=== PATIENT | female | born 1960 | race Two or more races ===

== ENCOUNTER 2020-07-31 04:47 | Inpatient (IN) | payer BC ==
[2020-07-31] MEDS ORDERED: NITROGLYCERIN-D5W PMX 50 MG in DEXTROSE/WATER 1 250ML.BAG IV STA (05:01)
--- NOTE | 2020-07-31 05:01 | ED ---
Chest Pain HPI - General Chief Complaint: Chest Pain Stated Complaint: Chest pain Time Seen by Provider: 07/31/20 05:01 Source: patient, EMS Mode of arrival: EMS Limitations: no limitations - History of Present Illness Initial Comments: Gertrudis is a 59-year-old female with a history of known coronary artery disease status post stenting 1, patient is a transfer to our hospital from outside hospital where she was seen and evaluated for chest pain. Patient reports that she was in her usual state of health throughout the day yesterday she woke from sleep with left-sided chest pain no palpitations, diaphoresis or shortness of breath. Pain was worse than any cardiac pain she's experienced in the past. She sought care at outside hospital where her pain was relieved by nitro and she was placed on nitro drip. She requested transfer to our facility for evaluation by her deliverer outside Dr. Glover. On arrival to our emergency department patient reports that her pain is improving she's much more comfortable now. - Related Data Allergies Allergy/AdvReac Type Severity Reaction Status Date / Time No Known Allergies Allergy Verified 07/31/20 05:01 Review of Systems ROS Statement: Those systems with pertinent positive or pertinent negative responses have been documented in the HPI. ROS Other: All systems not noted in ROS Statement are negative. EKG Findings - EKG Comments: EKG Findings:: EKG was obtained due to complaint of chest pain, EKG was obtained at 5:13 AM, rate is 62 rhythm is sinus there is a normal axis, normal intervals, MT 180, QRS 74, QTC is 448 there are no acute ST elevations or depressions no evidence of acute ischemia or infarction Past Medical History Past Medical History: Coronary Artery Disease (CAD), Hypertension History of Any Multi-Drug Resistant Organisms: None Reported Past Surgical History: No Surgical Hx Reported Past Psychological History: No Psychological Hx Reported Smoking Status: Current every day smoker Past Alcohol Use History: None Reported Past Drug Use History: None Reported General Exam - General Exam Comments Initial Comments: Physical Exam GENERAL: Patient is well-developed and well-nourished. Patient is nontoxic and well-hydrated and is in no distress. HENT: Normocephalic, Atraumatic. EYES: PERRL, EOMI PULMONARY: Unlabored respirations. CARDIOVASCULAR: RRR Warm and well perfused extremities ABDOMEN: Non-distended SKIN: No rashes or bruising : Deferred NEUROLOGIC: Alert and oriented Normal speech Normal gait MUSCULOSKELETAL: Moving all extremities with no apparent injury PSYCHIATRIC: No SI/HI Limitations: no limitations Course Vital Signs 07/31/20 07/31/20 04:51 05:53 Temperature 97.7 F 97.7 F Pulse Rate 60 60 Respiratory 18 18 Rate Blood Pressure 137/71 122/56 O2 Sat by Pulse 94 L 94 L Oximetry Chest Pain MDM - MDM Patient care was scheduled transferring physician, patient with intractable chest pain on a nitro drip transferred here for evaluation by cardiology Upon arrival here patient's chest pain has improved, nitro drip was discontinued Nitropaste will be ordered excited and repeat labs were obtained CBC and CMP were unremarkable troponin was pending at the time of admission Patient to be admitted to the [facility] hospitalist group with a consult to cardiology for further evaluation Patient was chest pain-free upon admission Disposition Clinical Impression: Chest pain Disposition: ADMITTED IP TO THIS HOSP Condition: Stable Is patient prescribed a controlled substance at d/c from ED?: No
[2020-07-31] MEDS ORDERED: NITROGLYCERIN SL TABS 0.4 MG TAB SUBLINGUAL PRN ×3 (05:16→12:12)
[2020-07-31] MEDS: SODIUM CHLORIDE 0.9% 1,000 ML IV STA ×2 (05:32→13:06)
[2020-07-31] MEDS: NITROGLYCERIN OINT 1 INCH/GM PACKET TOPICAL SCH ×2 (05:33→12:33)
[2020-07-31 05:37] LABS: ALT 22 U/L (4-34); AST 22 U/L (14-36); African American GFR (CKD) >90 (>60 ml/min/1.73 sqM); Albumin 3.6 g/dL (3.5-5.0); Alkaline Phosphatase 110 U/L (38-126); Anion Gap 5 mmol/L; Blood Urea Nitrogen 11 mg/dL (7-17); Calcium 9.2 mg/dL (8.4-10.2); Carbon Dioxide 25 mmol/L (22-30); Chloride 109 mmol/L (98-107); Glucose 117 mg/dL (74-99); Non-African American GFR(CKD) 86 (>60 ml/min/1.73 sqM); Potassium 4.1 mmol/L (3.5-5.1); Sodium 139 mmol/L (137-145); Total Bilirubin 0.4 mg/dL (0.2-1.3); Total Protein 6.2 g/dL (6.3-8.2)
[2020-07-31 05:38] LABS: Basophils % (A) 0 %; Eosinophils # (A) 0.1 k/uL (0-0.7); Eosinophils % (A) 2 %; Lymphocytes # (A) 1.7 k/uL (1.0-4.8); Lymphocytes % (A) 22 %; MCH 28.3 pg (25.0-35.0); MCHC 31.8 g/dL (31.0-37.0); MCV 89.1 fL (80.0-100.0); Monocytes # (A) 0.3 k/uL (0-1.0); Monocytes % (A) 4 %; Neutrophils # (A) 5.5 k/uL (1.3-7.7); Neutrophils % (A) 71 %; Platelet Count 229 k/uL (150-450); RDW 13.2 % (11.5-15.5); WBC 7.7 k/uL (3.8-10.6)
[2020-07-31 05:45] LABS: INR 0.9 (<1.2); Partial Thromboplastin Time 22.2 sec (22.0-30.0); Prothrombin Time 9.5 sec (9.0-12.0)
[2020-07-31] MEDS ORDERED: HEPARIN SODIUM,PORCINE 5,000 UNIT/ML 1 ML VIAL IV PRN (06:14)
[2020-07-31] MEDS ORDERED: HEPARIN SODIUM,PORCINE 5,000 UNIT/ML 1 ML VIAL IV ONE (06:14)
[2020-07-31] MEDS ORDERED: HEPARIN SOD,PORK IN 0.45% NACL 25,000 UNIT in 0.45% NACL 1 250ML.BAG IV SCH (06:15)
[2020-07-31] MEDS ORDERED: ASPIRIN 325 MG TAB PO STA (08:52)
[2020-07-31] MEDS ORDERED: ATORVASTATIN 80 MG TAB PO STA (08:52)
[2020-07-31] MEDS ORDERED: ALPRAZolam 0.5 MG TAB PO PRN (08:52)
[2020-07-31] MEDS ORDERED: SODIUM CHLORIDE 0.9% 1,000 ML in EMPTY BAG 1 BAG IV ONE (08:52)
[2020-07-31] MEDS ORDERED: ALPRAZolam 0.25 MG TAB PO PRN (08:52)
[2020-07-31] MEDS ORDERED: ATORVASTATIN 80 MG TAB PO SCH ×2 (09:00→21:00)
--- NOTE | 2020-07-31 09:25 | P.CRDCN ---
History of Present Illness Consult date: 07/31/20 Consult reason: non-Q-wave [place] Chief complaint: Chest pain History of present illness: This is a 59-year-old female with documented history of hypertension, hyperlipidemia, nicotine dependence, coronary artery disease with prior LAD stenting 2 years ago in [place]. Patient has stopped taking all of her medicat ions at home, she continues to take an occasional aspirin. Patient presented to [facility] with symptoms of chest discomfort. According to the patient her symptoms started around midnight, woke her from sleep. She described the symptoms as tightness and pressure in the chest with radiation to both of her arms, she states her right arm was quite painful in both arms were numb. She did have associated diaphoresis and episode of nausea and vomiting. Her EKG performed on arrival tomorrow at showed a normal sinus rhythm with no acute changes. Blood work performed at [facility], d-dimer 0.47, hemoglobin 13.6, magnesium 2.0, troponin 0.05. Patient was transferred to [facility] for further evaluation and treatment. Her blood pressure on arrival here 118/56, heart rate in the 50s, respirations 18, 95% on room air. EKG showed normal sinus rhythm with no acute changes. White blood cell count 7.7, hemoglobin 13, platelet count 229. Sodium 139, potassium 4.1, BUN 11, creatinine 0.7. Magnesium 2.0 and troponin 0.1. Patient is currently on a baby aspirin, heparin drip, nitroglycerin drip, and Nitropaste. We will start the patient on Lipitor 80, obtain a repeat EKG as well as an echocardiogram with Doppler study. Patient has also been advised to undergo cardiac catheterization, the risks and the benefits were explained to the patient in detail and she is willing to pr oceed. This will be performed today by Dr. Glover. Past Medical History Past Medical History: Coronary Artery Disease (CAD), Hypertension History of Any Multi-Drug Resistant Organisms: None Reported Past Surgical History: No Surgical Hx Reported Past Psychological History: No Psychological Hx Reported Smoking Status: Current every day smoker Past Alcohol Use History: None Reported Past Drug Use History: None Reported Medications and Allergies Home Medications Medication Instructions Recorded Confirmed Type No Known Home Medications 07/31/20 07/31/20 History Allergies Allergy/AdvReac Type Severity Reaction Status Date / Time No Known Allergies Allergy Verified 07/31/20 06:39 Physical Exam Vitals: Vital Signs Temp Pulse Pulse Resp BP BP Pulse Ox 07/31/20 08:00 57 L 16 125/58 97 07/31/20 06:56 98.4 F 56 L 18 118/56 95 07/31/20 06:01 55 L 16 125/65 96 07/31/20 05:53 97.7 F 60 18 122/56 94 L 07/31/20 04:51 97.7 F 60 18 137/71 94 L Intake and Output 07/30/20 07/31/20 07/31/20 22:59 06:59 14:59 Other: # Voids 1 Weight 104.326 kg PHYSICAL EXAMINATION: GENERAL: 59-year-old female in no acute distress at the time of my examination HEENT: Head is atraumatic, normocephalic. Pupils equal, round. Sclera anicteric. Conjunctiva are clear. Mucous membranes of the mouth are moist. Neck is supple. There is no elevated jugular venous pressure. No carotid bruit is heard. HEART EXAMINATION: Heart S1, S2 normal. No murmur or gallop heard. CHEST EXAMINATION: Lungs are clear to auscultation and precussion. No chest wall tenderness is noted on palpation or with deep breathing. ABDOMEN: Soft, nontender. Bowel sounds are heard. No organomegaly noted. EXTREMITIES: 2+ peripheral pulses with no evidence of peripheral edema and no calf tenderness noted. NEUROLOGIC patient is awake, alert and oriented 3 . . Results 07/31/20 05:07 07/31/20 05:07 Cardiac Enzymes 07/31/20 07/31/20 07/31/20 Range/Units 05:07 05:07 07:30 AST 22 (14-36) U/L Troponin I 0.100 H* 0.187 H* (0.000-0.034) ng/mL Coagulation 07/31/20 Range/Units 05:07 PT 9.5 (9.0-12.0) sec APTT 22.2 (22.0-30.0) sec CBC 07/31/20 Range/Units 05:07 WBC 7.7 (3.8-10.6) k/uL RBC 4.60 (3.80-5.40) m/uL Hgb 13.0 (11.4-16.0) gm/dL Hct 41.0 (34.0-46.0) % Plt Count 229 (150-450) k/uL Comprehensive Metabolic Panel 07/31/20 Range/Units 05:07 Sodium 139 (137-145) mmol/L Potassium 4.1 (3.5-5.1) mmol/L Chloride 109 H (98-107) mmol/L Carbon Dioxide 25 (22-30) mmol/L BUN 11 (7-17) mg/dL Creatinine 0.77 (0.52-1.04) mg/dL Glucose 117 H (74-99) mg/dL Calcium 9.2 (8.4-10.2) mg/dL AST 22 (14-36) U/L ALT 22 (4-34) U/L Alkaline Phosphatase 110 (38-126) U/L Total Protein 6.2 L (6.3-8.2) g/dL Albumin 3.6 (3.5-5.0) g/dL Current Medications Generic Name Dose Route Start Last Admin Trade Name Freq PRN Reason Stop Dose Admin Alprazolam 0.25 mg 07/31/20 08:52 Alprazolam 0.25 Mg Tab PO Q6HR PRN Mild Anxiety Alprazolam 0.5 mg 07/31/20 08:52 Alprazolam 0.5 Mg Tab PO Q6HR PRN Moderate Anxiety Aspirin 325 mg 08/01/20 09:00 Aspirin 325 Mg Tab PO DAILY [facility] Atorvastatin Calcium 80 mg 08/01/20 09:00 Atorvastatin 80 Mg Tab PO DAILY [facility] Heparin Sodium (Porcine) 0 unit 07/31/20 06:14 Heparin Sodium,Porcine 5,000 Unit/Ml 1 Ml Vial IV PER PROTOCOL PRN Low PTT Protocol Sodium Chloride 1,000 mls @ 75 mls/hr 07/31/20 05:01 07/31/20 05:32 Saline 0.9% IV 07/31/20 18:20 75 mls/hr .[id number] STA Administration Nitroglycerin/Dextrose 50 mg/ 250 mls @ 1.5 mls/hr 07/31/20 05:01 07/31/20 05:24 IV Solution IV 08/01/20 05:00 Not Given .Q24H STA Protocol 5 MCG/MIN Heparin Sodium/Sodium Chloride 250 mls @ 9.389 mls/hr 07/31/20 06:15 07/31/20 06:23 25,000 unit/ Sodium Chloride IV 9 units/kg/hr .Q24H CATRACHO 9.389 mls/hr Administration Protocol 9 UNITS/KG/HR Sodium Chloride 1,000 ml/ IV 1,000 mls @ 104.326 mls/hr 07/31/20 08:52 Solution IV 07/31/20 18:27 .[id number] ONE 1 ML/KG/HR Nitroglycerin 0.4 mg 07/31/20 05:16 Nitroglycerin Sl Tabs 0.4 Mg Tab SUBLINGUAL Q5M PRN Chest Pain Nitroglycerin 1 inch 07/31/20 06:00 07/31/20 05:33 Nitroglycerin Oint 1 Inch/Gm Packet TOPICAL 1 inch Q6HR CATRACOH Administration Nitroglycerin 0.4 mg 07/31/20 08:52 Nitroglycerin Sl Tabs 0.4 Mg Tab SUBLINGUAL Q5M PRN Chest Pain Intake and Output 07/30/20 07/31/20 07/31/20 22:59 06:59 14:59 Other: # Voids 1 Weight 104.326 kg 07/31/20 05:07 07/31/20 05:07 EKG Interpretations (text) EKG shows a normal sinus rhythm with no acute changes. Assessment and Plan Plan: Assessment and plan #1 acute coronary syndrome #2 history of coronary artery disease with prior LAD stenting 2 years ago #3 hypertension #4 hyperlipidemia #5 nicotine dependence #6 noncompliance Plan We will start the patient on Lipitor 80, obtain a repeat EKG as well as echo this morning. She will undergo cardiac catheterization today by Dr. Ash. The risks and the benefits were explained to the patient in detail and she is w illing to proceed. Further recommendations based on the findings of this testing and patients overall clinical course. DNP note has been reviewed, I agree with a documented findings and plan of care. Patient was seen and examined.
--- NOTE | 2020-07-31 10:00 | ECHOF ---
Referral Reason:assess lvf MEASUREMENTS -------- HEIGHT: 180.3 cm WEIGHT: 104.3 kg BP: IVSd: 1.1 cm (0.6 - 1.1) LVIDd: 4.2 cm (3.9 - 5.3) LVPWd: 1.2 cm (0.6 - 1.1) EDV(Teich): 77 ml IVSs: 1.8 cm LVIDs: 1.6 cm LVPWs: 1.6 cm %IVS Thck: 63 % ESV(Teich): 7 ml EF(Teich): 90 % %FS: 61 % SV(Teich): 70 ml RVIDd: 2.2 cm (< 3.3) IVC: 19.55 mm LALs A4C: 4.2 cm LAAs A4C: 11.1 cm LAESV A-L A4C: 25 ml LAESV MOD A4C: 24 ml LALs A2C: 4.5 cm LAAs A2C: 15.1 cm LAESV A-L A2C: 44 ml LAESV MOD A2C: 41 ml LAESV(A-L): 34 ml LAESV Index (A-L): 15.30 ml/m Ao Diam: 2.4 cm (2.0 - 3.7) LA Diam: 3.4 cm (2.7 - 3.8) AV Cusp: 2.0 cm (1.5 - 2.6) EPSS: 0.4 cm MV E [place]: 0.87 m/s MV DecT: 223 ms MV Dec [place]: 3.9 m/s MV A [place]: 0.77 m/s MV E/A Ratio: 1.13 MV PHT: 65 ms MR Vmax: 0.88 m/s MR maxP.09 mmHg AV Vmax: 1.27 m/s AV maxP.42 mmHg TR Vmax: 2.50 m/s TR maxP.01 mmHg RAP: 5.00 mmHg RVSP: 30.01 mmHg MV EF SLOPE: 116.48 mm/s (70 - 150) MV EXCURSION: 17.01 mm (> 18.000) FINDINGS -------- This was a technically good study. The left ventricular size is normal. There is borderline concentric left ventricular hypertrophy. Overall left ventricular systolic function is normal with, an EF between 55 - 60 %. The diastolic filling pattern is normal for the age of the patient 11.06. The right ventricle is normal in size. The left atrial size is normal. Normal LA size by volume 22+/-6 ml/m2. The right atrial size is normal. Interatrial and interventricular septum intact. Aortic valve is trileaflet and is mildly thickened. The mitral valve is normal. Mild mitral annular calcification present. There is trace mitral regu rgitation. The tricuspid valve appears structurally normal. Mild tricuspid regurgitation present. Right vent ricular systolic pressure is normal at < 35 mmHg. There is no pulmonic regurgitation present. The aortic root size is normal. Normal inferior vena cava with normal inspiratory collapse consistent with estimated right atrial pre ssure of 5 mmHg. There is no pericardial effusion. CONCLUSIONS -------- 1. The left ventricular size is normal. 2. There is borderline concentric left ventricular hypertrophy. 3. Overall left ventricular systolic function is normal with, an EF between 55 - 60 %. 4. The diastolic filling pattern is normal for the age of the patient 11.06 5. Aortic valve is trileaflet and is mildly thickened. 6. Mild mitral annular calcification present. 7. There is trace mitral regurgitation. 8. Mild tricuspid regurgitation present. 9. There is no pericardial effusion. APPOINTMENT CLERK: Nati Dejesus RDCS
[2020-07-31] MEDS ORDERED: LIDOCAINE 1% INJ 10MG/ML (20 ML MDV) ONE (10:46)
[2020-07-31] MEDS ORDERED: fentaNYL (PF) 50 MCG/ML 2 ML AMP ONE (10:47)
[2020-07-31] MEDS ORDERED: IV FLUID CONTINUATION 1,000 ML IV ONE (10:48)
--- NOTE | 2020-07-31 10:56 | P.HPIM ---
History of Present Illness 59-year-old female with known history of coronary disease and secondary digit 2 years ago came in with complaints of chest discomfort started at midnight woke her from sleep chest pain is like tightness pressure-like sensation moderate severity radiating to both of her arms significantly to the right arm and right the Combivent was not with some associated diaphoresis and an episode of nausea vomiting. Patient's d-dimer was negative and patient had a first troponin was 0.1 patient was started on heparin drip aspirin. Patient was subsequently evaluated by cardiology and patient is going for cardiac catheterization Review of Systems REVIEW OF SYSTEMS: CONSTITUTIONAL: No fever, no malaise, no fatigue. HEENT: No recent visual problems or hearing problems. Denied any sore throat. CARDIOVASCULAR: No orthopnea, PND, no palpitations, no syncope. PULMONARY: No shortness of breath, no cough, no hemoptysis. GASTROINTESTINAL: No diarrhea, no nausea, no vomiting, no abdominal pain. NEUROLOGICAL: No headaches, no weakness, no numbness. HEMATOLOGICAL: Denies any bleeding or petechiae. GENITOURINARY: Denies any burning micturition, frequency, or urgency. MUSCULOSKELETAL/RHEUMATOLOGICAL: Denies any joint pain, swelling, or any muscle pain. ENDOCRINE: Denies any polyuria or polydipsia. The rest of the 14-point review of systems is negative. Past Medical History Past Medical History: Coronary Artery Disease (CAD), Hyperlipidemia, Hypertensio n, Myocardial Infarction (AR) Additional Past Medical History / Comment(s): Pt states she is unsure of HTN/elevated lipid hx, chronic L knee pain, past UTIs. Last Myocardial Infarction Date:: 2017 History of Any Multi-Drug Resistant Organisms: None Reported Past Surgical History: Heart Catheterization With Stent Additional Past Surgical History / Comment(s): 2018 PCI with stent-in [place], arm surgery to remove apple tree thorn. Past Anesthesia/Blood Transfusion Reactions: No Reported Reaction Date of Last Stent Placement:: 2017 Smoking Status: Current every day smoker - Past Family History Father Family Medical History: Respiratory Disorder Additional Family Medical History / Comment(s): Father lived to be 74 yrs. He has some kind of lung problems per pt. Mother Family Medical History: Diabetes Mellitus Additional Family Medical History / Comment(s): Pt states her mother had cardiac issues but unable to elaborate. She statse she lived to be 72 yrs old and had a hiatal hernia. Medications and Allergies Home Medications Medication Instructions Recorded Confirmed Type No Known Home Medications 07/31/20 07/31/20 History Allergies Allergy/AdvReac Type Severity Reaction Status Date / Time No Known Allergies Allergy Verified 07/31/20 06:39 Physical Exam Vitals: Vital Signs Temp Pulse Pulse Resp BP BP Pulse Ox 07/31/20 09:00 58 L 07/31/20 08:00 57 L 16 125/58 97 07/31/20 06:56 98.4 F 56 L 18 118/56 95 07/31/20 06:01 55 L 16 125/65 96 07/31/20 05:53 97.7 F 60 18 122/56 94 L 07/31/20 04:51 97.7 F 60 18 137/71 94 L Intake and Output 07/30/20 07/31/20 07/31/20 22:59 06:59 14:59 Other: # Voids 1 Weight 104.326 kg 104.326 kg PHYSICAL EXAMINATION: GENERAL: The patient is alert and oriented x3, not in any acute distress. Well developed, well nourished. HEENT: Pupils are round and equally reacting to light. EOMI. No scleral icterus. No conjunctival pallor. Normocephalic, atraumatic. No pharyngeal erythema. No thyromegaly. CARDIOVASCULAR: S1 and S2 present. No murmurs, rubs, or gallops. PULMONARY: Chest is clear to auscultation, no wheezing or crackles. ABDOMEN: Soft, nontender, nondistended, normoactive bowel sounds. No palpable organomegaly. MUSCULOSKELETAL: No joint swelling or deformity. EXTREMITIES: No cyanosis, clubbing, or pedal edema. NEUROLOGICAL: Gross neurological examination did not reveal any focal deficits. SKIN: No rashes. Results CBC & Chem 7: 07/31/20 05:07 07/31/20 05:07 Labs: Abnormal Lab Results - Last 24 Hours (Table) 07/31/20 07/31/20 07/31/20 Range/Units 05:07 05:07 07:30 Chloride 109 H (98-107) mmol/L Glucose 117 H (74-99) mg/dL Troponin I 0.100 H* 0.187 H* (0.000-0.034) ng/mL Total Protein 6.2 L (6.3-8.2) g/dL Thrombosis Risk Factor Assmnt - Choose All That Apply Any of the Below Risk Factors Present?: Yes Each Factor Represents 1 point: Age 41-60 years, Obesity (BMI >25) Other Risk Factors: No Other congenital or acquired thrombophilia - If yes, enter type in comment: No Thrombosis Risk Factor Assessment Total Risk Factor Score: 2 Thrombosis Risk Factor Assessment Level: Low Risk Assessment and Plan Plan: -Acute non-ST elevation microinfarction: Patient has depression chest pain as w ell patient will undergo cardiac catheterization today. No documented home medications at this time patient will need dual Antiplatelet therapy, beta corbin and possibly GILSON inhibitor and statin. -Coronary disease with previous stenting to LAD -Hypertension next and-hyperlipidemia -Nicotine dependence: Counseling will be provided
[2020-07-31] MEDS ORDERED: MIDAZOLAM 2 MG/2 ML VIAL IV ONE (11:05)
[2020-07-31] MEDS ORDERED: fentaNYL (PF) 50 MCG/ML 2 ML AMP IV ONE (11:05)
[2020-07-31] MEDS ORDERED: LIDOCAINE 1% INJ 10MG/ML (20 ML MDV) SQ ONE (11:05)
[2020-07-31] MEDS ORDERED: BIVALIRUDIN BOLUS 250 MG/50 ML IV ONE (11:42)
[2020-07-31] MEDS ORDERED: NITROGLYCERIN 1000MCG/10ML SYRINGE INTRACORON ONE (11:42)
[2020-07-31] MEDS ORDERED: BIVALIRUDIN 250 MG in SODIUM CHLORIDE 0.9% 50 ML IV ONE (11:43)
--- NOTE | 2020-07-31 11:43 | CC ---
CARDIAC CATHETERIZATION REPORT INDICATION: Unstable angina in a patient with known CAD, status post prior angioplasty of LAD. PROCEDURE NOTE: After obtaining informed consent, left heart catheterization and coronary angiogram were performed via the right femoral artery using standard Wei catheters. Patient tolerated the procedure well without any obvious immediate complications. A femoral angiogram was performed. Patient received moderate conscious sedation. Total sedation time was 14 minutes. FINDINGS: HEMODYNAMICS: Left ventricular end-diastolic pressure is 18 mm. There is no significant gradient across the aortic valve. LEFT VENTRICULOGRAM: Left ventriculogram was not performed. ANGIOGRAPHIC DATA: LEFT MAIN CORONARY ARTERY: Left main coronary artery is a normal-sized vessel and is free of stenosis. Divides into left anterior descending coronary artery and circumflex coronary artery. LAD was previously stented in the midportion just proximal to the stent, there is a moderate area of stenosis. Circumflex coronary artery and its branches are free of significant disease. Right coronary artery is a large dominant vessel and is free of significant stenosis. CONCLUSION: Moderate area of stenosis just proximal to the previously stented segment within the LAD. PLAN: The angiographic data will be reviewed by Dr. Zavala the on-call newcomer hostess, and perform an FFR and if needed an angioplasty. MMODL / IJN: [id number] /
[2020-07-31] MEDS ORDERED: PRASUGREL 10 MG TAB PO ONE (11:45)
[2020-07-31] MEDS ORDERED: PRASUGREL 10 MG TAB ONE (11:46)
[2020-07-31] MEDS ORDERED: IOPAMIDOL-370 100ML BTL INJ ONE ×2 (11:55→11:58)
[2020-07-31] MEDS ORDERED: MAG HYDROX/AL HYDROX/SIMETH 30 ML CUP PO PRN (12:12)
[2020-07-31] MEDS ORDERED: ATROPINE SULFATE 0.1 MG/ML 10ML SYRINGE IV PRN (12:12)
[2020-07-31] MEDS ORDERED: ZOLPIDEM 5 MG TAB PO PRN (12:12)
[2020-07-31] MEDS ORDERED: RX INFO: IV CONTRAST WAS GIVEN 1 EACH MISC MISCELLANE PRN (12:12)
[2020-07-31] MEDS ORDERED: SODIUM CHLORIDE 0.9% 1,000 ML IV SCH (12:15)
--- NOTE | 2020-07-31 12:25 | PTCA ---
PERCUTANEOUSTRANS CORORONARY ANGIOGRAPHY CORONARY ANGIOPLASTY PROCEDURE NOTE: Mrs. Morley is a 59-year-old female with a known history of coronary artery disease, status post percutaneous revascularization of the LAD in [place] in 2018, who presented with symptoms of chest pain and mild troponin elevation. She underwent cardiac catheterization by Dr. Glover and was found to have significant disease in the mid LAD, proximal to the prior stented segment. In view of that, recommendation made regarding angioplasty and stenting, the procedures, risks, and complication were discussed with the patient who is in full understanding and agreement. PROCEDURE: A 6-Jamaican FR4 guiding catheter introduced into the system after cannulating the left main, a 0.014 balanced medium weight J-wire was advanced across the lesion, positioned distally, then a 3.0 x 18 mm Xience Celena stent was advanced, deployed and post to 16 atmospheres, after the last inflation, after appropriate wait, the balloon and the guidewire were withdrawn back in the guiding catheter. Images were obtained and repeated. Those images reveal stable successful stenting. At that point, the guiding catheter, the balloon and the guidewire were removed. The sheath was removed, hemostasis was obtained with deployment of an Angio-Seal. There was no immediate complication. Patient is returned to room in stable condition. Of note, the patient received Angiomax per protocol as well as oral loading dose of Effient. She had chest discomfort and mild EKG changes that resolved at the end of the procedure. RESULTS: Successful stenting of the mid LAD with reduction of stenosis from 80% to 0%. RECOMMENDATION: Patient be continued on aspirin, Effient and statin. The importance of dual antiplatelet treatment were discussed with the patient in addition to the importance of smoking cessation. Depending on her progress, further recommendation will be made. DURATION OF SEDATION: 22 minutes. MMODL / IJN: [id number] /
[2020-07-31 13:58] VITALS: BMI 33.0
[2020-08-01 02:29] VITALS: RESP 18
[2020-08-01 07:52] LABS: Basophils % (A) 0 %; Eosinophils # (A) 0.1 k/uL (0-0.7); Eosinophils % (A) 2 %; HCT 37.2 % (34.0-46.0); HGB 12.1 gm/dL (11.4-16.0); Lymphocytes # (A) 1.6 k/uL (1.0-4.8); Lymphocytes % (A) 32 %; MCH 28.7 pg (25.0-35.0); MCHC 32.5 g/dL (31.0-37.0); MCV 88.4 fL (80.0-100.0); Mean Platelet Volume 6.6; Monocytes # (A) 0.3 k/uL (0-1.0); Monocytes % (A) 5 %; Neutrophils # (A) 3.1 k/uL (1.3-7.7); Neutrophils % (A) 60 %; Platelet Count 204 k/uL (150-450); RBC 4.21 m/uL (3.80-5.40); RDW 12.7 % (11.5-15.5); WBC 5.2 k/uL (3.8-10.6)
[2020-08-01 07:59] VITALS: BP 135/61; PULSE 60; TEMP 98.2
[2020-08-01 08:08] LABS: Calcium 8.6 mg/dL (8.4-10.2)
[2020-08-01] MEDS ORDERED: ASPIRIN 81 MG PO SCH (09:00)
[2020-08-01] MEDS ORDERED: lisinopriL 5 MG TAB PO SCH (09:00)
[2020-08-01] MEDS ORDERED: PRASUGREL 10 MG TAB PO SCH (09:00)
[2020-08-01] MEDS ORDERED: ASPIRIN 325 MG TAB PO SCH (09:00)
[2020-08-01] MEDS ORDERED: ATORVASTATIN 80 MG TAB PO SCH (09:00)
--- NOTE | 2020-08-01 11:17 | P.PN ---
Subjective Progress Note Date: 08/01/20 This is a 59-year-old female with documented history of hypertension, hyperlipidemia, nicotine dependence, coronary artery disease with prior LAD stenting 2 years ago in [place]. Patient has stopped taking all of her medications at home, she continues to take an occasional aspirin. Patient pre sented to [facility] with symptoms of chest discomfort. According to the patient her symptoms started around midnight, woke her from sleep. She described the symptoms as tightness and pressure in the chest with radiation to both of her arms, she states her right arm was quite painful in both arms were numb. She did have associated diaphoresis and episode of nausea and vomiting. Her EKG performed on arrival tomorrow at showed a normal sinus rhythm with no acute changes. Blood work performed at [facility], d-dimer 0.47, hemoglobin 13.6, magnesium 2.0, troponin 0.05. Patient was transferred to [facility] for further evaluation and treatment. Her blood pressure on arrival here 118/56, heart rate in the 50s, respirations 18, 95% on room air. EKG showed normal sinus rhythm with no acute changes. White blood cell count 7.7, hemoglobin 13, platelet count 229. Sodium 139, potassium 4.1, BUN 11, creatinine 0.7. Magnesium 2.0 and troponin 0.1. Patient is currently on a baby aspirin, heparin drip, nitroglycerin drip, and Nitropaste. We will start the patient on Lipitor 80, obtain a repeat EKG as well as an echocardiogram with Doppler study. Patient has also been advised to undergo cardiac catheterization, the risks and the benefits were explained to the patient in de tail and she is willing to proceed. This will be performed today by Dr. Glover. 08/01/2020 Patient was taken to the cardiac catheterization lab yesterday underwent angioplasty and stenting of the LAD. She was seen and examined this morning, denied any chest pain or difficulty in breathing. Echocardiogram with Doppler study was performed which revealed an ejection fraction of 55-60%. Blood pr essure 134/60 with a heart rate in the 60s, 95% on room air. White blood cell count 5.2, hemoglobin 12.1, platelet count 204. Sodium 138, potassium 4.0, BUN 12, creatinine 0.8. The patient is currently on aspirin 81 mg daily, Lipitor 80 mg daily, lisinopril 5 mg daily, Effient 10 mg daily, we will also start the patient on a low-dose beta corbin, plan for possible discharge home tomorrow if stable. Objective - Vital Signs Vital signs: Vital Signs Temp 98.2 F 08/01/20 07:58 Pulse 60 08/01/20 09:00 Resp 18 08/01/20 07:58 BP 135/61 08/01/20 07:58 Pulse Ox 95 08/01/20 07:58 Intake & Output 07/31/20 08/01/20 08/01/20 18:59 06:59 18:59 Intake Total 363 780 236 Output Total 300 Balance 63 780 236 Weight 104.326 kg Intake: IV 123 Intake, IV Titration 300 Amount Sodium Chloride 0.9% 1, 300 000 ml @ 75 mls/hr IV . [id number] CATRACHO Rx#:[id number] Oral 240 480 236 Output: Urine 300 Other: # Voids 1 3 - Exam PHYSICAL EXAMINATION: GENERAL: 59-year-old female in no acute distress at the time of my examination HEENT: Head is atraumatic, normocephalic. Pupils equal, round. Sclera anicteric. Conjunctiva are clear. Mucous membranes of the mouth are moist. Neck is supple. There is no elevated jugular venous pressure. No carotid bruit is heard. HEART EXAMINATION: Heart S1, S2 normal. No murmur or gallop heard. CHEST EXAMINATION: Lungs are clear to auscultation and precussion. No chest wall tenderness is noted on palpation or with deep breathing. ABDOMEN: Soft, nontender. Bowel sounds are heard. No organomegaly noted. EXTREMITIES: 2+ peripheral pulses with no evidence of peripheral edema and no calf tenderness noted. Right groin is soft, no evidence of any hematoma NEUROLOGIC patient is awake, alert and oriented 3 . . - Labs CBC & Chem 7: 08/01/20 07:22 08/01/20 07:22 Labs: Abnormal Lab Results - Last 24 Hours (Table) 07/31/20 07/31/20 08/01/20 Range/Units 13:24 13:24 07:22 APTT 44.7 H (22.0-30.0) sec Chloride 111 H (98-107) mmol/L Troponin I 0.202 H* (0.000-0.034) ng/mL LDL Cholesterol, Calc 126 H (0-99) mg/dL HDL Cholesterol 33 L (40-60) mg/dL Assessment and Plan Plan: Assessment and plan #1 acute coronary syndrome, status post angioplasty and stenting of the LAD #2 history of coronary artery disease with prior LAD stenting 2 years ago #3 hypertension #4 hyperlipidemia #5 nicotine dependence #6 noncompliance Plan We will add a small dose of beta corbin to her medication regime, increase activity today. Plan for possible discharge home in 24 hours if stable. DNP note has been reviewed, I agree with a documented findings and plan of care. Patient was seen and examined.
--- NOTE | 2020-08-01 12:49 | P.DS ---
Providers Date of admission: 08/01/20 11:56 Attending physician: Leonora Luciano Consults: 07/31/20 05:16 Consult Physician Urgent Consulting Provider: Jessica Monozn Consult Reason/Comments: chest pain, established patient with Evelyne Do you want consulting provider notified?: Yes, Notify in am 07/31/20 12:12 Consult Physician Routine Consulting Provider: Jessica Monzon Consult Reason/Comments: Post Interventional patient Do you want consulting provider notified?: Already Contacted Primary care physician: Physician Nonstaff Hospital Course: Diagnoses: -Chest pain, non-STEMI with coronary artery disease status post cardiac cath and stent placement of the LAD and improved stenosis from 80% down to 0%. -Hypertension -Nicotine dependence Hospital course: This is a pleasant 59 years old male with multiple medical problems including hypertension and cigarette smoker. Presents with chest pain found to have non- STEMI, he is been evaluated by clark driver and he underwent coronary angiography and angioplasty with stent placement of the LAD, postoperatively patient denies chest pain, no dyspnea. Importance of regular S2 therapy including aspirin and Effient are explained to the patient extensively and she verbalized understanding and acceptance No other new symptoms and patient is back to her baseline. No fever, no change in urine or bowel habits. No abdominal pain. No dyspnea or chest pain or headache or weakness. Patient was cleared for discharge by clark driver Problems and management plan were discussed with the patient and he verbalized understanding and acceptance Patient was found stable and can be discharged home however he needs follow-up as an outpatient. Patient was instructed to follow up with PCP at [facility] within one week and patient agrees to call and make her appointments. Also patient was instructed to follow up with her clark driver Dr. Glover in 1-2 weeks and she agrees Gen: patient is a AAOx3, no distress CVS: S1-S2, RRR, no murmur Lungs: B/L CTA, no wheezing Abdomen: soft, no distention, no tenderness, positive bowel sounds Extremity: no leg edema or induration Time spent more than 35 minutes Patient Condition at Discharge: Stable Plan - Discharge Summary Discharge Rx Participant: No New Discharge Prescriptions: No Action No Known Home Medications Discharge Medication List No Known Home Medications 07/31/20 [History] Follow up Appointment(s)/Referral(s): Nonstaff,Physician [Primary Care Provider] - 1-2 days
[2020-08-02] MEDS ORDERED: METOPROLOL TARTRATE 25 MG TAB PO SCH (09:00)
--- NOTE | 2020-08-03 07:40 | CDI ---
Documentation Clarification Form Date: 08/03/20 From: Majo Santizo CCS Phone: If you have a question about this query, please contact La Hartely, Wind Turbine Controls Engineer at [phone] between 8am and 5pm. Admit Date: 08/01/20 Discharge Date:08/01/20 Patient Name: Gertrudis Morley Visit Number: [id number] ATTENTION: The Clinical Documentation Specialists (CDI) and [facility] Coding Staff appreciate your assistance in clarifying documentation. Please respond to the clarification below the line at the bottom and electronically sign. The CDI & [facility] Coding staff will review the response and follow-up if needed. Please note: Queries are made part of the Legal Health Record. If you have any questions, please contact the author of this message via ITS. Dear Dr. Luciano, Conflicting documentation has been found in the medical record: H&P, DS documents: Chest pain, non-STEMI with coronary artery disease status post cardiac cath and stent placement of the LAD and improved stenosis from 80% down to 0% Consult, PN document: #1 acute coronary syndrome, status post angioplasty and stenting of the LAD History/Risk Factors: CAD, ME, PTCA w/ Stent, HTN, Tobacco, Non-compliance with meds, HLD Clinical Indicators: Elevated Troponin, Chest pain Labs: Troponin 0.100, 0.187, 0.202 CATH: Moderate area of stenosis just proximal to the previously stented segment within the LAD. PTCA: Successful stenting of the mid LAD with reduction of stenosis from 80% to 0%. Treatment: CATH, PTCA w/ JUAN, Heparin IV, Nitrostat sublingual PRN Consult: Cardiology In your opinion, what is the most clinically appropriate diagnosis for this patient? NSTEMI CAD with unstable angina Other explanation of clinical findings Unable to determine (no explanation for clinical findings) not my documentation MTDD
--- NOTE | 2020-08-07 09:44 | CDI ---
Documentation Clarification Form Date: 08/07/20 From: Majo Santizo CCS Phone: If you have a question about this query, please contact La Hartley, Dielectric Testing Machine Operator at [phone] between 8am and 5pm. Admit Date: 08/01/20 Discharge Date:08/01/20 Patient Name: Gertrudis Morley Visit Number: [id number] ATTENTION: The Clinical Documentation Specialists (CDI) and [facility] Coding Staff appreciate your assistance in clarifying documentation. Please respond to the clarification below the line at the bottom and electronically sign. The CDI & [facility] Coding staff will review the response and follow-up if needed. Please note: Queries are made part of the Legal Health Record. If you have any questions, please contact the author of this message via ITS. Dear Dr. Boone, Conflicting documentation has been found in the medical record: H&P, DS documents: Chest pain, non-STEMI with coronary artery disease status post cardiac cath and stent placement of the LAD and improved stenosis from 80% down to 0% Consult, PN document: #1 acute coronary syndrome, status post angioplasty and stenting of the LAD History/Risk Factors: CAD, [place], PTCA w/ Stent, HTN, Tobacco, Non-compliance with meds, HLD Clinical Indicators: Elevated Troponin, Chest pain Labs: Troponin 0.100, 0.187, 0.202 CATH: Moderate area of stenosis just proximal to the previously stented segment within the LAD. PTCA: Successful stenting of the mid LAD with reduction of stenosis from 80% to 0%. Treatment: CATH, PTCA w/ JUAN, Heparin IV, Nitrostat sublingual PRN Consult: Cardiology In your opinion, what is the most clinically appropriate diagnosis for this patient? NSTEMI CAD with unstable angina Other explanation of clinical findings Unable to determine (no explanation for clinical findings) Please refer to my note MTDD
== END 2020-08-01 13:58 | disposition home or self-care (01) | DRG 247 ==
LOC: EC 04:47 → 3NCARDOBS 05:16 → 3SCARD 06:32 → OBSVTOIN 08-01 11:56
PROVIDERS: ADMIT Hospitalist; ATTEND Hospitalist
PROC: 027034Z Dilation of Coronary Artery, One Artery with Drug-eluting Intraluminal Device, Percutaneous Approach (ICD-10-PCS; principal; 2020-07-31 11:00)
PROC: 4A023N7 Measurement of Cardiac Sampling and Pressure, Left Heart, Percutaneous Approach (ICD-10-PCS; 2020-07-31 11:00)
PROC: B2111ZZ Fluoroscopy of Multiple Coronary Arteries using Low Osmolar Contrast (ICD-10-PCS; 2020-07-31 11:00)
DX: I21.4 Non-ST elevation (NSTEMI) myocardial infarction (principal); I10 Essential (primary) hypertension; F17.210 Nicotine dependence, cigarettes, uncomplicated; E78.5 Hyperlipidemia, unspecified; I25.10 Atherosclerotic heart disease of native coronary artery without angina pectoris; G89.29 Other chronic pain; M25.562 Pain in left knee; I25.2 Old myocardial infarction; Z71.6 Tobacco abuse counseling; Z71.3 Dietary counseling and surveillance; Z83.3 Family history of diabetes mellitus; Z95.5 Presence of coronary angioplasty implant and graft; Z87.440 Personal history of urinary (tract) infections; Z98.890 Other specified postprocedural states; Z91.14 Patient's other noncompliance with medication regimen; Z83.6 Family history of other diseases of the respiratory system; Z83.79 Family history of other diseases of the digestive system
CPT/HCPCS: 36415; 80048; 80053; 80061; 83735; 84484; 85025; 85347; 85610; 85730; 93005; 93306; 93458; 99285

== ENCOUNTER 2021-03-14 13:43 | Emergency (ER) | payer BC ==
[2021-03-14 13:49] VITALS: BP 142/87; PULSE 97; RESP 18; TEMP 97.5
[2021-03-14] MEDS ORDERED: SODIUM CHLORIDE 0.9% 1,000 ML IV STA (14:53)
[2021-03-14] MEDS ORDERED: ONDANSETRON 4 MG/2 ML VIAL IVP STA (14:54)
[2021-03-14] MEDS ORDERED: diphenhydrAMINE 50 MG/ML 1 ML VIAL IVP STA (14:54)
[2021-03-14] MEDS ORDERED: KETOROLAC 15 MG/ML 1 ML VIAL IVP STA (14:54)
[2021-03-14 15:24] LABS: Basophils % (A) 1 %; Eosinophils # (A) 0.2 k/uL (0-0.7); Eosinophils % (A) 2 %; HCT 44.3 % (34.0-46.0); Lymphocytes # (A) 1.9 k/uL (1.0-4.8); Lymphocytes % (A) 28 %; MCH 29.7 pg (25.0-35.0); MCHC 33.8 g/dL (31.0-37.0); Mean Platelet Volume 6.7; Monocytes # (A) 0.4 k/uL (0-1.0); Monocytes % (A) 6 %; Neutrophils % (A) 61 %; Platelet Count 235 k/uL (150-450); RBC 5.04 m/uL (3.80-5.40); RDW 12.5 % (11.5-15.5); WBC 6.5 k/uL (3.8-10.6)
[2021-03-14 15:36] LABS: ALT 17 U/L (4-34); AST 19 U/L (14-36); African American GFR (CKD) >90 (>60 ml/min/1.73 sqM); Albumin 4.2 g/dL (3.5-5.0); Alkaline Phosphatase 108 U/L (38-126); Anion Gap 6 mmol/L; Blood Urea Nitrogen 14 mg/dL (7-17); Calcium 9.7 mg/dL (8.4-10.2); Carbon Dioxide 28 mmol/L (22-30); Chloride 106 mmol/L (98-107); Glucose 101 mg/dL (74-99); Non-African American GFR(CKD) 84 (>60 ml/min/1.73 sqM); Sodium 140 mmol/L (137-145); Total Bilirubin 0.4 mg/dL (0.2-1.3)
--- NOTE | 2021-03-14 15:41 | CT ---
EXAMINATION TYPE: CT brain wo con DATE OF EXAM: 03/14/2021 HISTORY: Headache for 2 weeks With dizziness and visual disturbance. CT DLP: 1135.4 mGycm. Automated Exposure Control for Dose Reduction was Utilized. TECHNIQUE: CT scan of the head is performed without contrast. COMPARISON: None. FINDINGS: There is no acute intracranial hemorrhage or midline shift identified. There is mild diff use ventricular and sulcal prominence consistent with diffuse age-related cerebral atrophy. Santiago-whit e matter differentiation maintained. The globes are intact and the visualized sinuses are clear. IMPRESSION: No acute intracranial hemorrhage or midline shift.
--- NOTE | 2021-03-14 16:43 | ED ---
Headache HPI - General Chief Complaint: Headache Stated Complaint: Headache,Dizziness, Sent by pcp Time Seen by Provider: 03/14/21 14:29 Mode of arrival: ambulatory Limitations: no limitations - History of Present Illness Initial Comments: Patient is a 60-year-old female with history of heart disease, hypertension, visiting to the emergency department for a headache for the last 2 weeks. Patient states she saw her doctor today who recommended coming into the ER for further evaluation. She states she's been having this intermittent headache over the last 2 weeks, comes and goes but never completely goes away. She has been taking ibuprofen which does seem to help a little bit. She states that also at times she feels like her vision goes a little bit blurry and then her headache becomes stronger. She admits to a little bit of lightheadedness as well, she has not been eating and drinking as much over the last few days. She denies any nausea or vomiting, no diarrhea. She denies any chest pain or shortness of breath, no fevers or chills. She states that she stopped all of her medications about 2-3 months ago. Her doctors are concerned as she does have history of heart disease. She does have an appointment with her irrigator head for tomorrow as a follow-up. She denies any falls or trauma. She has no further complaints at this time. - Related Data Home Medications Medication Instructions Recorded Confirmed No Known Home Medications 03/14/21 03/14/21 Allergies Allergy/AdvReac Type Severity Reaction Status Date / Time No Known Allergies Allergy Verified 03/14/21 16:07 Review of Systems ROS Statement: Those systems with pertinent positive or pertinent negative responses have been documented in the HPI. ROS Other: All systems not noted in ROS Statement are negative. Past Medical History Past Medical History: Coronary Artery Disease (CAD), Hyperlipidemia, Hypertensio n, Myocardial Infarction (AL) Additional Past Medical History / Comment(s): Pt states she is unsure of HTN/elevated lipid hx, chronic L knee pain, past UTIs. Last Myocardial Infarction Date:: 2017 History of Any Multi-Drug Resistant Organisms: None Reported Past Surgical History: Heart Catheterization With Stent Additional Past Surgical History / Comment(s): 2018 PCI with stent-in [place], L arm surgery to remove apple tree thorn. Past Anesthesia/Blood Transfusion Reactions: No Reported Reaction Date of Last Stent Placement:: 2018 Past Psychological History: No Psychological Hx Reported Smoking Status: Current every day smoker, Heavy tobacco smoker Past Alcohol Use History: None Reported Past Drug Use History: None Reported - Past Family History Father Family Medical History: Respiratory Disorder Additional Family Medical History / Comment(s): Father lived to be 74 yrs. He has some kind of lung problems per pt. Mother Family Medical History: Diabetes Mellitus Additional Family Medical History / Comment(s): Pt states her mother had cardiac issues but unable to elaborate. She statse she lived to be 72 yrs old and had a hiatal hernia. General Exam - General Exam Comments Initial Comments: GENERAL: Patient is well-developed and well-nourished. Patient is nontoxic and in no acute distress. HEAD: Atraumatic, normocephalic. EYES: Pupils equal round and reactive to light, extraocular movements intact, sclera anicteric, conjunctiva are normal. Eyelids were unremarkable. ENT: TMs normal, nares patent, oropharynx clear without exudates. Moist mucous membranes. NECK: Normal range of motion, supple without lymphadenopathy or JVD. LUNGS: Unlabored respirations. Breath sounds clear to auscultation bilaterally and equal. No wheezes rales or rhonchi. HEART: Regular rate and rhythm without murmurs, rubs or gallops. ABDOMEN: Soft, nontender, normoactive bowel sounds. No guarding, no rebound. No masses appreciated. : Deferred MUSCULOSKELETAL: Normal extremities with adequate strength and normal range of motion, no pitting or edema. No clubbing or cyanosis. NEUROLOGICAL: Patient is alert and oriented x 3. Motor and sensory are also intact. Cranial nerves II through XII grossly intact. Symmetrical smile. Normal speech, normal gait. PSYCH: Normal mood, normal affect. SKIN: Warm, Dry, normal turgor, no rashes or lesions noted. Limitations: no limitations Course Vital Signs 03/14/21 13:45 Temperature 97.5 F L Pulse Rate 97 Respiratory 18 Rate Blood Pressure 142/87 O2 Sat by Pulse 99 Oximetry Medical Decision Making - Medical Decision Making Patient is a 60-year-old female here for a headache for the last 2 weeks. She was sent in by her PCP for further evaluation. No falls or trauma. Her exam reveals no acute neuro deficits. Her vital signs are stable. Lab work is unremarkable, I did do a CT of the brain which showed no acute events. Patient received fluids, pain control and Zofran. She reports improvement in her headache. Currently a 11/18. I discussed with patient that this is most likely a migraine, vision changes are most likely an auro before the headache begins. I recommended continuing increase her fluid intake, trial of Excedrin Extra Strength for future headaches. She also stopped all of her home medications about 2-3 months ago, recommended following up with her PCP regarding restarting these. She states she already has an appointment with them in the next few days. She is stable for discharge. Return parameters were discussed with the patient she verbalized understanding. Case discussed with Dr. Baltazar. - Lab Data Result diagrams: 03/14/21 15:15 03/14/21 15:15 Lab Results 03/14/21 03/14/21 Range/Units 15:15 15:15 WBC 6.5 (3.8-10.6) k/uL RBC 5.04 (3.80-5.40) m/uL Hgb 15.0 (11.4-16.0) gm/dL Hct 44.3 (34.0-46.0) % MCV 88.0 (80.0-100.0) fL MCH 29.7 (25.0-35.0) pg MCHC 33.8 (31.0-37.0) g/dL RDW 12.5 (11.5-15.5) % Plt Count 235 (150-450) k/uL MPV 6.7 Neutrophils % 61 % Lymphocytes % 28 % Monocytes % 6 % Eosinophils % 2 % Basophils % 1 % Neutrophils # 4.0 (1.3-7.7) k/uL Lymphocytes # 1.9 (1.0-4.8) k/uL Monocytes # 0.4 (0-1.0) k/uL Eosinophils # 0.2 (0-0.7) k/uL Basophils # 0.0 (0-0.2) k/uL Sodium 140 (137-145) mmol/L Potassium 4.0 (3.5-5.1) mmol/L Chloride 106 (98-107) mmol/L Carbon Dioxide 28 (22-30) mmol/L Anion Gap 6 mmol/L BUN 14 (7-17) mg/dL Creatinine 0.78 (0.52-1.04) mg/dL Est GFR (CKD-EPI)AfAm >90 (>60 ml/min/1.73 sqM) Est GFR (CKD-EPI)NonAf 84 (>60 ml/min/1.73 sqM) Glucose 101 H (74-99) mg/dL Calcium 9.7 (8.4-10.2) mg/dL Total Bilirubin 0.4 (0.2-1.3) mg/dL AST 19 (14-36) U/L ALT 17 (4-34) U/L Alkaline Phosphatase 108 (38-126) U/L Total Protein 7.0 (6.3-8.2) g/dL Albumin 4.2 (3.5-5.0) g/dL TSH 1.440 (0.465-4.680) mIU/L Disposition Clinical Impression: Headache Disposition: HOME SELF-CARE Condition: Stable Instructions (If sedation given, give patient instructions): Acute Headache (ED) Additional Instructions: Please return to the Emergency Department if symptoms worsen or any other concerns. Please follow-up with your PCP regarding your medications. Is patient prescribed a controlled substance at d/c from ED?: No Referrals: Nonstaff,Physician [Primary Care Provider] - 1-2 days Time of Disposition: 16:42
== END 2021-03-14 17:31 | disposition home or self-care (01) ==
LOC: EC 13:43
DX: R51.9 Headache, unspecified (principal); E78.5 Hyperlipidemia, unspecified; I10 Essential (primary) hypertension; I25.10 Atherosclerotic heart disease of native coronary artery without angina pectoris; I25.2 Old myocardial infarction; Z95.5 Presence of coronary angioplasty implant and graft; F17.200 Nicotine dependence, unspecified, uncomplicated
CPT/HCPCS: 36415; 80053; 84443; 85025; 70450; 99284; 96374; 96375 ×2; J1200; J2405; J1885